=== PATIENT | female | born 1990 | race Caucasian/White ===

== ENCOUNTER 2021-01-13 17:46 | Emergency (ER) | payer OTHER ==
[~2021-01-13 17:46] MED LIST: AUGMENTIN 500-1 EACH PO; CYCLOBENZAPRINE10 MG PO; MOTRIN600 MG PO; ONDANSETRON ODT4 MG PO; PEPCID AC20 MG PO; PREDNISONE 20MG20 MG PO
[2021-01-13 19:13] LABS: BASOPHIL 0.4 % (0-2); EOSINOPHIL 4.5 % (0-5); HCT 37.6 % (37.0-47.0); HGB 13.1 g/dl (12.5-16.0); LYMPHOCYTE 39.1 % (15-48); MCH 30.3 pg (25.0-31.0); MCHC 34.8 g/dL (32.0-36.0); MCV 86.8 fL (78.0-100.0); MONOCYTE 8.6 % (0-12); MPV 11.2 fL (6.0-9.5); NEUTROPHIL 47.2 % (41-80); NRBC 0; PLT 202 K/uL (150-400); RBC 4.33 M/uL (4.20-5.40); RDW 11.7 % (11.5-14.0); WBC 4.9 K/uL (4.0-10.5)
[2021-01-13 19:24] LABS: BILIRUBIN NEGATIVE (NEGATIVE); BLOOD NEGATIVE Ery/uL (NEGATIVE); CLARITY CLEAR (CLEAR); COLOR YELLOW (YELLOW); GLUCOSE (U) NORMAL (NORMAL); LEUKOCYTES NEGATIVE Leu/uL (NEGATIVE); NITRITE NEGATIVE (NEGATIVE); PROTEIN NEGATIVE (NEGATIVE); UROBILINOGEN 0.2 mg/dL (0.2-1.0)
[2021-01-13 19:31] LABS: ALBUMIN 3.7 g/dL (3.4-5.0); BILIRUBIN - TOTAL 0.4 mg/dL (0.2-1.0); BUN/CREAT RATIO (CALC) 10.9 RATIO; CREATININE 0.55 mg/dL (0.51-0.95); GLOBULIN (CALCULATION) 3.3 g/dL; POTASSIUM 3.6 mmol/L (3.5-5.1)
[2021-01-14] MEDS ORDERED: FLAGYL500 MG PO (00:38)
[2021-01-14] MEDS ORDERED: AMOXICILLIN500 MG PO (00:38)
[2021-01-14] MEDS ORDERED: PROTONIX 40MG T40 MG PO (00:38)
== END 2021-01-14 00:58 | disposition home or self-care (01) ==
LOC: FER 17:46
PROVIDERS: Emergency Medicine
DX: A04.8 Other specified bacterial intestinal infections (principal); Z86.16 Personal history of COVID-19; Z88.5 Allergy status to narcotic agent; Z88.8 Allergy status to other drugs, medicaments and biological substances; Z87.442 Personal history of urinary calculi
CPT/HCPCS: 36415; 80053; 81003; 83690; 85025; 87339; J1885; J2270; J2405; J7040; Q9967